=== PATIENT | male | born 1995 | race Two or more races ===

== ENCOUNTER 2025-01-01 13:15 | Emergency (ER) | payer OTHER ==
[~2025-01-01] VITALS: Ht 193 cm; Wt 104.3 kg
[2025-01-01 13:36] VITALS: BP 102/68; O2SAT 97
[2025-01-01 15:41] LABS: HEMATOCRIT 41.9 % (39.0-48.0); HEMOGLOBIN 13.8 g/dL (13-16.00); MEAN CELL VOLUME 90.9 fL (80.0-100.00); MEAN CORPUSCULAR HEMOGLOBIN 30.1 pg (27.00-32.0); MEAN CORPUSCULAR HGB CONC 33.1 g/dl (32.0-36.0); PLATELET COUNT 204 K/uL (150-450); RED CELL DISTRIBUTION WIDTH 15.3 % (11.5-14.5)
[2025-01-01 16:04] LABS: CALCIUM 8.9 mg/dL (8.5-10.1); CREATININE SERUM 1.01 mg/dL (0.70-1.30); GFR 87.33; POTASSIUM 4.44 mEq/L (3.5-5.1)
[2025-01-01] MEDS ORDERED: CLINDAMYCIN PHOSPHATE 150 MG/ML (300mg) ONE (22:43)
[2025-01-01] MEDS ORDERED: CLINDAMYCIN PHOSPHATE 150 MG/ML (600mg) IM STA (22:44)
[2025-01-01] MEDS ORDERED: PEPCID AC20 MG PO (22:59)
[2025-01-01] MEDS ORDERED: CLINDAMYCIN HC300 MG PO (22:59)
== END 2025-01-01 23:03 | disposition home or self-care (01) ==
LOC: ER 13:16
PROVIDERS: General Practice
DX: K04.7 Periapical abscess without sinus (principal)